=== PATIENT | male | born 1990 | race Hispanic/Latino ===

== ENCOUNTER 2024-01-27 06:48 | Day surgery (SDC) | payer BC ==
[2024-01-21 12:52] VITALS: BP 131/76; PULSE 68; RESP 16
[2024-01-27] VITALS (17 sets, daily range): BP systolic 103–133; BP diastolic 62–86; PULSE 60–80; RESP 10–18
[~2024-01-27] VITALS: Ht 175.3 cm; Wt 86.7 kg
[~2024-01-27 06:48] MED LIST: IBUP-2077 PO
[2024-01-27] MEDS: CEFAZOLIN SODIUM 2 GM VIAL ONE (07:20)
[2024-01-27] MEDS: LACTATED RINGERS 1000ML 1,000 ML IV ONE (07:20)
[2024-01-27] MEDS ORDERED: FAMOTIDINE 20MG VIAL IV ONE (07:27)
[2024-01-27] MEDS ORDERED: LIDOCAINE HCL 2% JELLY 5 ML ONE (07:31)
[2024-01-27] MEDS ORDERED: ROCURONIUM BROMIDE 10MG/1ML 5ML VL ONE (07:32)
[2024-01-27] MEDS ORDERED: PHENYLEPHRINE HCL 10 MG/ML 1ML VIAL IV ONE (07:32)
[2024-01-27] MEDS ORDERED: PROPOFOL 10 MG/ML 20ML VIAL IV ONE (07:32)
[2024-01-27] MEDS ORDERED: GLYCOPYRROLATE 0.2 MG/ML 5 ML VIAL ONE (07:32)
[2024-01-27] MEDS ORDERED: SUCCINYLCHOLINE CHLORIDE 20 MG/ML 10 ML VIAL ONE (07:32)
[2024-01-27] MEDS ORDERED: FENTANYL CITRATE PF 50 MCG/1 ML 5ML AMP IV ONE (07:33)
[2024-01-27] MEDS ORDERED: MIDAZOLAM HCL 1 MG/ML 2ML VIAL ONE (07:42)
[2024-01-27] MEDS ORDERED: BACITRACIN 28.4 GM OINT TP ONE (08:23)
[2024-01-27] MEDS ORDERED: BUPIVACAINE/PF 0.25% 30ML VIAL IJ ONE (08:24)
[2024-01-27] MEDS ORDERED: ONDANSETRON 4MG INJ ONE (08:54)
[2024-01-27] MEDS: CEFAZOLIN SODIUM 2 GM VIAL IVPB ONE ×2 (09:01)
[2024-01-27] MEDS: BUPIVACAINE/PF 0.25% 30ML VIAL IJ ONE (09:09)
== END 2024-01-27 11:35 | disposition home or self-care (01) ==
LOC: DAH 06:48
PROVIDERS: ATTEND Urology
DX: N47.1 Phimosis (principal); N49.8 Inflammatory disorders of other specified male genital organs; L90.5 Scar conditions and fibrosis of skin; I10 Essential (primary) hypertension; M19.90 Unspecified osteoarthritis, unspecified site; F17.210 Nicotine dependence, cigarettes, uncomplicated; Z79.1 Long term (current) use of non-steroidal anti-inflammatories (NSAID); Z80.8 Family history of malignant neoplasm of other organs or systems; Z82.3 Family history of stroke; Z83.3 Family history of diabetes mellitus; Z72.89 Other problems related to lifestyle; Z82.49 Family history of ischemic heart disease and other diseases of the circulatory system
CPT/HCPCS: 54161; 88304; A6260; A4663; J7030; A4606; J7120; J3490 ×2; J3010; J0665 ×2; J2250; J2704; J2405; J2371; J0690 ×2; A4215; A4223; A4222; A4221; A4600; J0330